=== PATIENT | male | born 1930 | race Caucasian/White ===

== ENCOUNTER 2018-02-01 13:22 | Observation (INO) | payer MEDICARE, OTHER ==
[2018-01-28 12:15] LABS: BASOPHILS # (AUTO) 0.1 X10'3 (0-0.2); BASOPHILS % (AUTO) 1.5 % (0-1); EOSINOPHILS # (AUTO) 0.2 X10'3 (0-0.9); EOSINOPHILS % (AUTO) 3.6 % (0-6); LYMPHOCYTES # (AUTO) 1.4 X10'3 (1.1-4.8); LYMPHOCYTES % (AUTO) 24.7 % (21-51); MEAN CORPUSCULAR HEMOGLOBIN 31.2 PG (27.0-31.0); MEAN CORPUSCULAR HGB CONC 33.9 % (33.0-36.5); MEAN CORPUSCULAR VOLUME 91.9 FL (78-98); MEAN PLATELET VOLUME 8.3 FL (7.4-10.4); MONOCYTES # (AUTO) 0.5 X10'3 (0-0.9); MONOCYTES % (AUTO) 9.2 % (2-12); NEUTROPHILS # (AUTO) 3.4 X10'3 (1.8-7.7); PRE OP HEMATOCRIT 40.9 % (42.0-52.0); PRE OP HEMOGLOBIN 13.9 g/dL (14.0-17.9); PRE OP PLATELET COUNT 202 X10'3 (140-440); RED BLOOD COUNT 4.45 X10'6 (4.70-6.10); RED CELL DISTRIBUTION WIDTH 13.8 % (11.5-14.5)
[2018-01-28 12:20] LABS: CLARITY,URINE CLEAR (Clear); COLOR,URINE YELLOW (Yellow); GLUCOSE, URINE >=1000 mg/dl (Neg); KETONES,URINE NEGATIVE (Neg); LEUKOCYTE ESTERASE ,URINE NEGATIVE (Neg); NITRITES, URINE NEGATIVE (Neg); OCCULT BLOOD,URINE TRACE-INTACT (Neg); PROTEIN,URINE 30 mg/dl (Neg); UROBILINOGEN,URINE 0.2 E.U/dL (0.2-1.0)
[2018-01-28 12:37] LABS: ALBUMIN 3.8 G/DL (3.4-5.0); ALKALINE PHOSPHATASE 82 IU/L (46-116); BLOOD UREA NITROGEN 18 MG/DL (7-18); CALCIUM 8.9 MG/DL (8.5-10.1); CHLORIDE 100 MMOL/L (99-107); CREATININE 1.64 MG/DL (0.60-1.10); PRE OP ALT 15 U/L (30-65); PRE OP ANION GAP 7 (8-16); PRE OP AST 13 U/L (10-37); PRE OP BILIRUB, TOTAL 0.5 MG/DL (0.0-1.0); PRE OP POTASSIUM 4.4 MMOL/L (3.4-5.1); PRE OP SODIUM 138 MMOL/L (135-145); TOTAL CARBON DIOXIDE 31.1 MMOL/L (24-32); TOTAL PROTEIN 7.8 G/DL (6.4-8.2); eGFR 40 ML/MIN
[2018-01-28 12:38] LABS: UA COLLECTION TYPE NON-SPECIFIED
[2018-01-28 12:39] LABS: BACTERIA,URINE NONE SEEN /HPF (Neg); MUCUS STRANDS FEW /LPF (Neg); RBC,URINE 0-2 /HPF (0-2); SQUAMOUS EPITHELIAL CELL,UR NONE SEEN /LPF (FEW); WBC,URINE 0-4 /HPF (0-4)
[2018-01-28 12:42] LABS: PRE OP GLUCOSE 236 MG/DL (70-104)
[2018-02-01] VITALS (12 sets, daily range): BP systolic 130–163; BP diastolic 69–89
[~2018-02-01] VITALS: Ht 174 cm; Wt 90.9 kg
[~2018-02-01 13:22] MED LIST: CHOL200016 PO; DILT180C95 PO; DOCUMENT DATE & TIME OF BETA-BLOCKER PO ONE; DORZ10DR18 OP; GABA-581 PO; GLIM4TAB79 PO; LEVO100T PO; METO100T7 PO; OMEP-84 PO; PRAV10TA39 PO; TRAV5DRO5 LEFTEYE; VALS160T2 PO; ceFAZolin 2gm in dextrose, iso 100 ML IV ONE; famotidine 20mg tablet PO ONE; ringers solution, lacted 1,000 ML IV SCH
[2018-02-01] MEDS ORDERED: LIDOcaine 1% (10mg/ml) 2ml vial ONE (13:36)
[2018-02-01] MEDS ORDERED: LIDOcaine 1% 30ml preserv. free vial ONE (14:45)
[2018-02-01] MEDS ORDERED: ceFAZolin 1000mg inj ONE (14:45)
[2018-02-01] MEDS ORDERED: fentaNYL/PF 50MCG/1 ML 2ML syringe ONE ×2 (16:15→18:12)
[2018-02-01] MEDS ORDERED: midazolam 2 mg/2 ml injection ONE ×2 (16:15→16:16)
[2018-02-01] MEDS ORDERED: propofol inj 20 ML IV ONE (16:16)
[2018-02-01] MEDS ORDERED: LIDOcaine 2% (20mg/ml) 5ml vial ONE (16:16)
[2018-02-01] MEDS ORDERED: ondansetron/PF 4mg/2ml inj IV PRN ×2 (17:40→21:25)
[2018-02-01] MEDS ORDERED: hydrALAZINE 20mg/ml inj. IV PRN ×2 (17:45→22:45)
[2018-02-01] MEDS ORDERED: morphine 4 MG/ML inj SYRINge IV PRN ×2 (17:45)
[2018-02-01] MEDS ORDERED: fentaNYL/PF 50MCG/1 ML 2ML syringe IV PRN ×2 (17:45)
[2018-02-01] MEDS ORDERED: enalaprilat dihydrate 2.5mg/2ml vial IV PRN (17:50)
[2018-02-01] MEDS ORDERED: ringers solution, lacted 1,000 ML IV SCH (17:50)
[2018-02-01] MEDS ORDERED: HYDROcodone/acetaminophen 10/325mg tab PO PRN ×2 (17:55→21:25)
[2018-02-01] MEDS: Potassium Cl inj 20 MEQ in ringers solution, lacted 1,000 ML IV SCH (23:17)
[2018-02-02] MEDS ORDERED: ceFAZolin 1GM/D5W- ADD-VANTAGE 50 ML IV SCH
[2018-02-02 03:00] VITALS: BP 166/72
[2018-02-02 06:46] VITALS: BP 172/81
[2018-02-02] MEDS: ceFAZolin 2gm in dextrose, iso 100 ML IV SCH ×3 (08:00→15:34)
[2018-02-02] MEDS: Potassium Cl inj 20 MEQ in ringers solution, lacted 1,000 ML IV SCH ×2 (08:37→13:35)
[2018-02-02 11:00] VITALS: BP 114/75
[2018-02-02 15:00] VITALS: BP 156/77
[2018-02-02] MEDS ORDERED: lactobacillus rhamnosus 10,000 MMU CELLS/CAPSULE PO SCH (20:00)
[2018-02-02] MEDS ORDERED: gabapentin 300mg capsule PO SCH (21:00)
[2018-02-03] MEDS ORDERED: pantoprazole 40mg Tablet.DR PO SCH (07:30)
[2018-02-03] MEDS ORDERED: vitamin D (cholecalciferol) 1,000 unit tablet PO SCH (08:00)
[2018-02-03] MEDS ORDERED: metoprolol succinate 25mg (24-HOUR) SR. Tablet PO SCH (08:00)
[2018-02-03] MEDS ORDERED: atorvastatin 10mg tablet PO SCH (08:00)
[2018-02-03] MEDS ORDERED: levoTHYROXINE 100mcg tablet PO SCH (08:00)
== END 2018-02-02 17:00 | disposition home or self-care (01) ==
LOC: PAS 13:22 → PCU 3S 21:10 → PAS 21:25
PROVIDERS: ADMIT Surgery; ATTEND Surgery
DX: I48.2 Chronic atrial fibrillation (principal); E11.9 Type 2 diabetes mellitus without complications; I10 Essential (primary) hypertension; I25.10 Atherosclerotic heart disease of native coronary artery without angina pectoris; Z87.891 Personal history of nicotine dependence
CPT/HCPCS: 33207; 36415; 71045; 71046; 71048; 76000; 80053; 81001; 82948; 83036; 84443; 85025; 85610; 85730; 87070; 93005; 96365; 96366; A4565; A6257; C1786; G0378; J0690; J2001; J2250; J2704; J3010; J3480; J3490; J7120; A7000